=== PATIENT | male | born 1995 | race Two or more races ===

== ENCOUNTER → 2024-09-10 | Emergency (ER) | payer BC ==
[~2024-09-10] VITALS: Ht 167.6 cm; Wt 77.1 kg
[~2024-09-10] MED LIST: 0.9 % SODIUM CHLORIDE 1,000 ML IV ONE; FAMOtidine 10 MG/ML (4ML VIAL) IV ONE; FOLIC ACID 5 MG/ML VIAL IV ONE; MULTIVIT INFUSN,ADULT 4,VIT K 10 ML VIAL IV ONE; ONDANSETRON HCL 2 MG/ML VIAL IV ONE; THIAMINE HCL 100 MG/ML 2 ML VIAL IV ONE
[2024-09-10 21:08] LABS: HEMATOCRIT 41.6 % (39.0-48.0); HEMOGLOBIN 14.8 g/dL (13-16.00); MEAN CELL VOLUME 92.8 fL (80.0-100.00); MEAN CORPUSCULAR HEMOGLOBIN 32.9 pg (27.00-32.0); MEAN CORPUSCULAR HGB CONC 35.5 g/dl (32.0-36.0); PLATELET COUNT 253 K/uL (150-450); RED BLOOD COUNT 4.49 M/uL (4.00-6.00); RED CELL DISTRIBUTION WIDTH 13.5 % (11.5-14.5)
[2024-09-10 21:35] LABS: ALBUMIN 4.4 gm/dL (3.4-5.0); BILIRUBIN TOTAL 0.55 mg/dL (0.3-1.2); CALCIUM 9.2 mg/dL (8.5-10.1); CREATININE SERUM 0.98 mg/dL (0.70-1.30); GFR 91.07; GLOBULINA 3.3 G/DL (2.4-3.5); POTASSIUM 3.73 mEq/L (3.5-5.1); TOTAL PROTEIN 7.7 gm/dL (6.4-8.2)
== END | disposition home or self-care (01) ==
LOC: ER 20:40
PROVIDERS: General Practice
DX: F19.929 Other psychoactive substance use, unspecified with intoxication, unspecified (principal)